=== PATIENT | female | born 2000 | race Two or more races ===

== ENCOUNTER 2022-10-21 07:32 | Emergency (ER) | payer SELFPAY ==
[~2022-10-21] VITALS: Ht 154.9 cm; Wt 90.3 kg
[2022-10-21 08:06] VITALS: BP 115/66
[2022-10-21] MEDS ORDERED: IBUP-1456 PO (08:59)
[2022-10-21] MEDS ORDERED: BACDST PO (08:59)
== END 2022-10-21 09:01 | disposition home or self-care (01) ==
LOC: ER 07:32
DX: K04.7 Periapical abscess without sinus (principal); N39.0 Urinary tract infection, site not specified
CPT/HCPCS: 81002; 81025

== ENCOUNTER 2023-12-30 16:47 | Inpatient (IN) | payer MEDICAID, OTHER ==
[~2023-12-30] VITALS: Ht 154.9 cm; Wt 92.3 kg
[~2023-12-30 16:47] MED LIST: BACDST PO; IBUP-1456 PO
[2023-12-30 17:17] LABS: Urine Bacteria None Seen /hpf (None Seen)
[2023-12-30 17:32] LABS: Basophils # (auto) 0 10 ^3/uL (0-0.2); Eosinophils # (auto) 0.2 10 ^3/uL (0-0.8); Eosinophils % (auto) 1.9 % (0.0-7.0); Hemoglobin 12.1 g/dL (12.2-16.2); Monocytes # (auto) 0.6 10 ^3/uL (0-1.3); Monocytes % (auto) 6.7 % (0.0-12.0)
[2023-12-30 17:33] LABS: Urine Blood Negative /uL (Negative); Urine Clarity Clear (Clear); Urine Color Dark-Yellow (Yellow); Urine Protein, UAD Negative (Negative); Urine Specific Gravity 1.016 (1.001-1.035); Urine Urobilinogen 2 mg/dL (Negative); Urine WBC 5 /hpf (0 - 5)
[2023-12-30 17:33] LABS: Basophils % (auto) 0.2 % (0.0-2.0); Hematocrit 35.8 % (36.0-46.0); Lymphocytes # (auto) 2.6 10 ^3/uL (0.4-5.4); Lymphocytes % (auto) 29.8 % (10.0-50.0); Mean Corpuscular Hemoglobin 26.7 pg (28.0-32.0); Mean Corpuscular Hgb Conc. 33.7 g/dL (32.0-36.0); Mean Corpuscular Volume 79.2 fL (80.0-100.0); Neutrophils # (auto) 5.4 10 ^3/uL (1.6-8.6); Neutrophils % (auto) 61.4 % (37.0-80.0); Red Blood Cells 4.53 10^6/uL (4.0-5.20); White Blood Cell 8.9 10^3/uL (4.4-10.8)
[2023-12-30 17:38] VITALS: PULSE 86; RESP 18; O2SAT 100
[2023-12-30] MEDS: ONDANSETRON ODT 4 MG TAB PO ONE (17:43)
[2023-12-30] MEDS: HYDROcodone-ACET 5/325MG TAB PO ONE (17:43)
[2023-12-30 17:45] LABS: Anion Gap 6 (5-15); Carbon Dioxide 25 mmol/L (20-30); Chloride 109 mmol/L (98-107); Potassium 3.7 mmol/L (3.5-5.1); Sodium 140 mmol/L (136-145)
[2023-12-30 17:46] LABS: Calcium 9.6 mg/dL (8.7-10.4)
[2023-12-30 17:50] LABS: Glucose 85 mg/dL (74-106)
[2023-12-30 17:51] LABS: Lipase 30 U/L (12-53)
[2023-12-30 17:52] LABS: BUN/Creatinine Ratio 9.3 (10.0-20.0); Blood Urea Nitrogen < 5 mg/dL (9-23)
[2023-12-30] MEDS: NITROFURANTOIN 100 mg CAP PO ONE (18:05)
[2023-12-30] MEDS: HYDROmorphone HCL 2 MG/ML VL/or syr IM ONE (18:23)
[2023-12-30] MEDS ORDERED: ACETAMINOPHEN 325 MG TAB PO PRN (22:30)
[2023-12-30] MEDS ORDERED: ONDANSETRON HCL 4 MG/2 ML VIAL IV PRN (22:30)
[2023-12-30 22:55] VITALS: PULSE 65; RESP 16; O2SAT 99
[2023-12-30] MEDS: cefTRIAXone 1GM/50ML D5W 50 ML IV ONE (23:05)
[2023-12-30] MEDS: SODIUM CHLORIDE 0.9% 1,000 ML IV SCH (23:06)
[2023-12-30] MEDS ORDERED: MORPHINE SULFATE INJ 2 MG/ml SYRG IV PRN (23:30)
[2023-12-30] MEDS ORDERED: NITROGLYCERIN 0.4 MG SL TAB SL PRN (23:30)
[2023-12-31] VITALS (8 sets, daily range): BP systolic 106–119; BP diastolic 70–78; PULSE 70–76; RESP 16–17; TEMP 97.8–98.2; O2SAT 93–100
[2023-12-31] MEDS: HYDROcodone-ACET 5/325MG TAB PO PRN (00:56)
[2023-12-31 04:47] LABS: Basophils # (auto) 0 10 ^3/uL (0-0.2); Hemoglobin 11.4 g/dL (12.2-16.2); Lymphocytes # (auto) 2.7 10 ^3/uL (0.4-5.4); Monocytes # (auto) 0.6 10 ^3/uL (0-1.3); Monocytes % (auto) 8.9 % (0.0-12.0); Neutrophils # (auto) 3.5 10 ^3/uL (1.6-8.6); White Blood Cell 7.1 10^3/uL (4.4-10.8)
[2023-12-31 04:49] LABS: Basophils % (auto) 0.7 % (0.0-2.0); Eosinophils # (auto) 0.2 10 ^3/uL (0-0.8); Eosinophils % (auto) 3.4 % (0.0-7.0); Hematocrit 33.6 % (36.0-46.0); Lymphocytes % (auto) 37.4 % (10.0-50.0); Mean Corpuscular Hemoglobin 26.7 pg (28.0-32.0); Mean Corpuscular Hgb Conc. 33.8 g/dL (32.0-36.0); Mean Corpuscular Volume 79.1 fL (80.0-100.0); Neutrophils % (auto) 49.6 % (37.0-80.0); Red Blood Cells 4.25 10^6/uL (4.0-5.20); Red Cell Distribution Width 13.8 % (11.8-14.3)
[2023-12-31 05:12] LABS: Alanine Aminotransferase 12 U/L (7-40); Albumin 3.9 g/dL (3.2-4.8); Alkaline Phosphatase 84 U/L (46-116); Anion Gap 7 (5-15); BUN/Creatinine Ratio 11.5 (10.0-20.0); Blood Urea Nitrogen 6 mg/dL (9-23); Carbon Dioxide 25 mmol/L (20-30); Chloride 107 mmol/L (98-107); Glucose 95 mg/dL (74-106); Potassium 3.5 mmol/L (3.5-5.1); Sodium 139 mmol/L (136-145)
[2023-12-31 05:13] LABS: Aspartate Aminotransferase 8 U/L (13-40); Bilirubin, Total 0.7 mg/dL (0.2-1.0); Total Protein 6.3 g/dL (5.7-8.2)
[2023-12-31] MEDS: cefTRIAXone 1GM/50ML D5W 50 ML IV SCH (09:05)
[2023-12-31] MEDS: HYDROmorphone HCL 2 MG/ML VL/or syr IV PRN (11:35)
[2023-12-31] MEDS: DOCUSATE SOD 100 MG CAP PO PRN (11:35)
[2024-01-01] VITALS (7 sets, daily range): BP systolic 92–117; BP diastolic 53–73; PULSE 59–84; RESP 16–22; TEMP 97.8–98.2; O2SAT 94–100
[2024-01-01 17:54] LABS: Urine Bacteria None Seen /hpf (None Seen)
[2024-01-01 18:15] LABS: Amphetamine Screen, Urine Neg (NEGATIVE); Barbiturate Scree,Urine Neg (NEGATIVE); Benzodiazephine Screen, Urine Neg (NEGATIVE); Cannabinoid Screen, Urine Pos (NEGATIVE); Cocaine Screen, Urine Neg (NEGATIVE); Opiate Scree,Urine Neg (NEGATIVE); Phencyclidine Screen, Urine Neg (NEGATIVE)
[2024-01-01 18:48] LABS: Urine Blood 3+ /uL (Negative); Urine Clarity Turbid (Clear); Urine Color Colorless (Yellow); Urine Protein, UAD TRACE (Negative); Urine Specific Gravity 1.006 (1.001-1.035); Urine Urobilinogen Normal (Negative); Urine WBC 44 /hpf (0 - 5)
[2024-01-02 01:00] VITALS: BP 107/54; PULSE 70; RESP 20; TEMP 97.7; O2SAT 96
[2024-01-02 05:00] VITALS: BP 95/47; PULSE 54; RESP 20; TEMP 97.9; O2SAT 97
[2024-01-02] MEDS: PANTOPRAZOLE 40 MG TAB PO ONE (06:51)
[2024-01-02 07:30] VITALS: PULSE 78; RESP 18; O2SAT 100
[2024-01-02 09:19] VITALS: BP 90/41; PULSE 78; RESP 16; TEMP 98.1; O2SAT 100
[2024-01-02] MEDS ORDERED: LEVO500T91 PO (12:29)
[2024-01-02] MEDS ORDERED: HYDR-4902 PO (12:29)
[2024-01-02] MEDS ORDERED: METR-344 PO (12:29)
[2024-01-02] MEDS ORDERED: PANT40T PO (12:29)
[2024-01-02 13:00] VITALS: BP 106/62; PULSE 66; RESP 17; TEMP 97.7; O2SAT 100
[2024-01-02 13:51] VITALS: BP 106/62; PULSE 66; RESP 17; TEMP 97.7; O2SAT 100
[2024-01-03] MEDS ORDERED: PANTOPRAZOLE 40 MG TAB PO SCH (06:00)
== END 2024-01-02 15:15 | disposition home or self-care (01) | DRG 463 ==
LOC: ER 16:52 → OVERFLOW 23:31 → WEST WING 12-31 09:51
PROVIDERS: ADMIT Nurse Practitioner Family; ATTEND Family Medicine
DX: N30.00 Acute cystitis without hematuria (principal); E86.0 Dehydration; K82.8 Other specified diseases of gallbladder; J45.909 Unspecified asthma, uncomplicated; Z79.899 Other long term (current) drug therapy
CPT/HCPCS: 36415; 74176; 76705; 80048; 80053; 80307; 81001; 81025; 83690; 85025; 87040; 87086; G0378; Q0162

== ENCOUNTER 2024-12-12 09:21 | Emergency (ER) | payer SELFPAY ==
[~2024-12-12] VITALS: Ht 154.9 cm; Wt 95.9 kg
[~2024-12-12 09:21] MED LIST changes: -BACDST PO; +HYDR-4902 PO; -IBUP-1456 PO; +LEVO500T91 PO; +METR-344 PO; +PANT40T PO
[2024-12-12 09:41] VITALS: TEMP 98.6
[2024-12-12 09:47] VITALS: BP 128/86
[2024-12-12 09:55] VITALS: PULSE 92; RESP 20; O2SAT 97
--- NOTE | 2024-12-12 10:06 | ED.PDOC ---
SOB-HPI HPI Comments 24 y/o F, with PMhx of asthma presents to the ED for CC of flu-like symptoms. Patient states, she has been experiencing flu-like symptoms including cough, nasal congestion, ear pain, and shortness of breath x2days. Patient reports, cough comes and goes. Patient denies chest pain, fever, chills, loss of taste or smell. No other symptoms or modifiers present at this time. Chief Complaint: Flu like Time Seen by MD: 09:58 Primary Care Provider: NONE Reviewed notes: Nurses Notes, Medications, Allergies Information Source: Patient Mode of Arrival: Ambulatory Severity: Moderate Timing: Days Duration: Since onset Context: At Rest History of: None Prehospital treatment: None Modifying Factors: Nothing Associated Signs and Symptoms: Cough, Nasal Congestion, Sore Throat Past Medical History PAST MEDICAL HISTORY: Asthma, UTI'S Surgical History: Denies all surgeries ENDOCRINOLOGIST History: Denies all ENDOCRINOLOGIST Hx Family History Family History: Reviewed,noncontributory to illness Social History Smoker: Non-Smoker Alcohol: Denies ETOH Use Drugs: Denies Drug Use Lives In: Home Constitutional: denies: chills, diaphoresis, fatigue, fever, malaise, sweats, weakness, others EENTM: reports: ear pain, nose congestion, throat pain; denies: blurred vision, double vision, ear bleeding, ear discharge, ear drainage, ear ringing, eye pain, eye redness, hearing loss, mouth pain, mouth swelling, nasal discharge, nose bleeding, nose pain, photophobia, tearing, throat swelling, voice changes, others Respiratory: reports: cough, shortness of breath; denies: hemoptysis, orthopnea, SOB at rest, SOB with excertion, stridor, wheezing, others Cardiovascular: denies: chest pain, dizzy spells, diaphoresis, Dyspnea on exertion, edema, irregular heart beat, left arm pain, lightheadedness, palpitations, PND, syncope, others Gastrointestinal: denies: abdomen distended, abdominal pain, blood streaked bowels, constipated, diarrhea, dysphagia, difficulty swallowing, hematemesis, melena, nausea, poor appetite, poor fluid intake, rectal bleeding, rectal pain, vomiting, others Genitourinary: denies: abnormal vagina bleeding, burning, dyspareunia, dysuria, flank pain, frequency, hematuria, incontinence, pain, , vagina discharge, urgency, others Neurological: denies: dizziness, fainting, headache, left sided numbness, left sided weakness, numbness, paresthesia, pre-existing deficit, right sided numbness, right sided weakness, seizure, speech problems, tingling, tremors, weakness, others Musculoskeletal: denies: back pain, gout, joint pain, joint swelling, muscle pain, muscle stiffness, neck pain, others Integumetry: denies: bruises, change in color, change in hair/nails, dryness, laceration, lesions, lumps, rash, wounds, others Allergic/Immunocompromised: denies: Difficulty Healing, Frequent Infections, Hives, Itching, others Hematologic/Lymphatic: denies: anemia, blood clots, easy bleeding, easy bruising, swollen glands, others Endocrine: denies: excessive hunger, excessive sweating, excessive thirst, excessive urination, flushing, intolerance to cold, intolerance to heat, unexplained weight gain, unexplained weight loss, others Psychiatric: denies: anxiety, bipolar disorder, depression, hopeless, panic disorder, schizophrenia, sleepless, suicidal, others All Other Systems: Reviewed and Negative Physical Exam General Appearance: No Apparent Distress, Normal HEENT: Normal ENT Inspection, Pharynx Normal, Other (no nasal flaring, no sternal retraction) Neck: Full Range of Motion, Non-Tender, Normal, Normal Inspection Respiratory: Chest Non-Tender, Lungs Clear, No Accessory Muscle Use, No Respiratory Distress, Normal Breath Sounds Cardiovascular: No Murmur, No Gallop, Regular Rate/Rhythm Breast Exam: Deferred Gastrointestinal: No Organomegaly, Non Tender, No Pulsatile Mass, Normal Bowel Sounds, Soft Genitalia: Deferred Pelvic: Deferred Rectal: Deferred Extremities: No calf tenderness, Normal capillary refill, Normal inspection, Normal range of motion, Non-tender, No pedal edema Musculoskeletal : Apperance: Normal Neurologic: Alert, shaker screen operator II-XII nml as Tested, No Motor Deficits, Normal Affect, Normal Mood, No Sensory Deficits Cerebellar Function: Normal Reflexes: Normal Skin: Dry, Normal Color, Warm Lymphatic: No Adenopathy Was a procedure done? Was a procedure done?: No Differential Dx Differential Diagnosis: Asthma, Pneumonia, Sinusitis, Pharyngitis, URI X-Ray, Labs, Meds, VS Vital Signs Date Time Temp Pulse Resp B/P (MAP) Pulse Ox O2 Delivery O2 Flow Rate FiO2 12/12/24 09:55 92 20 97 Room Air* 0 21 12/12/24 09:47 85 18 98 Room Air 12/12/24 09:47 92 18 128/86 (100) 98 12/12/24 09:45 18 97 Room Air* 0 21 12/12/24 09:41 98.6 91 18 122/72 (89) 97 98.6 Lab Test 12/12/24 10:00 Range/Units Urine Color Light-yellow Yellow Urine Clarity Clear Clear Urine pH 6.5 5.0-9.0 Urine Specific [place] 1.015 1.001-1.035 Urine Protein Negative Negative Urine Ketones Negative Negative Urine Blood Negative Negative /uL Urine Nitrite Negative Negative Urine Bilirubin Negative Negative Urine Urobilinogen Normal Negative mg/dL Urine Leukocyte Esterase Negative Negative /uL Urine RBC 1 0 - 4 /hpf Urine Microscopic WBC 1 0-5 /HPF Urine Squamous Epithelial Cells Few <5 /hpf Urine Bacteria None seen None Seen /hpf Urine Mucus Few None Seen Urine Glucose Normal Normal mg/dL Current Medications Medications (Trade) Dose Ordered Sig/Tonia Route Start Time Stop Time Status Last Admin Dexamethasone Sodium Phosphate (Decadron Injection) 16 mg ONCE ONCE IM 12/12/24 10:00 12/12/24 10:07 DC 12/12/24 10:15 [place] [id number] Ph: [phone] DIAGNOSTIC IMAGING Diagnostic Imaging Report : [id number] Signed PATIENT: UMA LYN ACCT: [id number] UNIT: [id number] : 2000 LOC: ER ROOM / BED: / AGE / SEX: 24 / F ADM STATUS: REG ER SERVICE 1000 ORDERING PHYSICIAN: CHARLIE MAHMOOD NP PROCEDURE(s): CXR2 - CHEST TWO VIEWS ROUTINE REASON: Cough. R/o PNA ORDER NUMBER(s): [id number], ACCESSION NUMBER(s): [id number] CHEST RADIOGRAPH Indication: Cough. R/o PNA Technique: Frontal and lateral view of the chest was obtained Comparison: None FINDINGS: Lines and Tubes: None Lungs: Mild congestion Pleura: No effusion. No pneumothorax. Cardiomediastinal contours: Unremarkable Bones: Unremarkable IMPRESSION: Low lung volumes. Possible viral pneumonia. ATED BY: DEN GRANT MD DICTATED DATE/TIME: 12/12/24 103 SIGNED BY: DEN GRANT MD SIGNED DATE/TIME: 12/12/24 1034 CC: X-Ray, Labs, Meds, VS Comment 24 y/o F, with PMhx of asthma presents to the ED for CC of flu-like symptoms. Patient arrives alert and oriented, ABC's intact, afebrile, vital signs stable, saturating well in room air Urinalysis was ordered to rule out UTI or hematuria. Diagnostic imaging ordered by me and results interpreted by radiology :CXR Low lung volumes. Possible viral pneumonia. The patient's presentation and chest x-ray findings are consistent with viral pneumonia. The patient is overall well-appearing and does not appear to be clinically toxic. Therefore, the patient is a good candidate for outpatient treatment. The patient was reassessed throughout the ED visit and remained stable. The patient did not require any supplemental oxygen while in the ED. The patient was able to ambulate as well as tolerate p.o. intake in the ED. discussed the management plan with the patient who was in agreement, strict return precautions to the ED were given Patient is stable for discharge at this time. External notes reviewed. Test results and diagnostic imaging interpreted. All diagnostic findings, discharge care, education and instructions provided Follow-up with PCP in 2 to 3 days Patient verbalized understanding and agreed to treatment plan Vital signs stable, afebrile, no acute distress noted Patient ambulatory with strong steady gait Advised to return precautions for any new or worsening symptoms, return to ER immediately for re-evaluation Patient is aware that the purpose of this visit was for an acute medical emergency requiring emergent stabilization. Chronic conditions, including malignancies have not been ruled out. Patient is instructed to follow up with PCP as directed and discharge instructions for continued care and workup. If unable to arrange follow-up, patient is to return to the emergency department for reassessment. Patient (parent or legal guardian if applicable) was given verbal and written discharge instructions and acknowledges understanding. Additional MDM Review of External, Non-ED records: External records reviewed. Discussion with independent historian (EMS, family) history obtained from the patient/parents (if applicable) at bedside Chronic conditions affecting care: None Social determinants of health affecting care: None Consideration of admission (observation or admission): I considered escalation of care to admission for this patient, however given the reassuring workup, the patient is safe for outpatient management. Discussion with the Radiology: No Tests considered but not performed: Prescription medication considered but not given: Time of 1ST Reevaluation: 10:22 Reevaluation 1ST: Unchanged Time of 2ND Reevaluation: 11:48 Reevaluation 2ND: Improved Patient Education/Counseling: Diagnosis, Treatment Family Education/Counseling: No Family Present SEPSIS Sepsis Screen Date sepsis recognized/suspect: Dec 12, 2024 Time Sepsis recognized/suspect: 954 Recent Procedure: No On Antibiotic Therapy: No Respiratory Rate >20: No Heart Rate >90: Yes Temp<36 C (96.8 F) or >38.3 C: No SBP <90 or MAP <65 mmHG: No New Acute Mental Status Change: No Is the patient on CPAP, BIPAP,: No Physician Orders Chest Two Views Routine (12/12/24 10:00) Vital Signs Date Time Temp Pulse Resp B/P (MAP) Pulse Ox O2 Delivery O2 Flow Rate FiO2 12/12/24 09:55 92 20 97 Room Air* 0 21 12/12/24 09:47 85 18 98 Room Air 12/12/24 09:47 92 18 128/86 (100) 98 12/12/24 09:45 18 97 Room Air* 0 21 12/12/24 09:41 98.6 91 18 122/72 (89) 97 98.6 Medications Medications Dose Ordered Sig/Tonia Route Start Time Stop Time Status Last Admin Dose Admin Dexamethasone Sodium Phosphate 16 mg ONCE ONCE IM 12/12/24 10:00 12/12/24 10:07 DC 12/12/24 10:15 Departure 1 Departure Time of Disposition: 11:52 Impression: Primary Impression: Viral pneumonia Disposition: 01 HOME / SELF CARE / HOMELESS Condition: Stable e-Prescriptions Albuterol Sulfate (Albuterol Sulfate Hfa) 108 Mcg/Act Aer 1 PUFF IN Q6HP PRN for 30 Days, #1 AER 0 Refills Prov: CHARLIE MAHMOOD PRISON OFFICER 12/12/24 Promethazine-Dm (Promethazine Dm 6.25-15 mg/5Ml) 1 Zuleyka Zuleyka 5 ML PO TIDP PRN for 10 Days, #150 ML 0 Refills Prov: CHARLIE MAHMOOD PRISON OFFICER 12/12/24 Benzonatate (Benzonatate) 100 Mg Cap 1 CAP PO TID for 10 Days, #30 CAP 0 Refills Prov: CHARLIE MAHMOOD PRISON OFFICER 12/12/24 Azithromycin (Azithromycin) 250 Mg Tab 250 MG PO DAILY MDD 500 for 5 Days, #6 TAB 0 Refills 2 TABLETS ORALLY ON DAY ONE, THEN 1 TABLET ORALLY DAILY FOR 4 DAYS Prov: CHARLIE MAHMOOD LUZ 12/12/24 Critical Care Note Critical Care Time?: No Stability Stability form required: No Heart Score Heart Score: Heart Score Response (Comments) Value History N/A 0 EKG N/A 0 Age N/A 0 Risk Factors N/A 0 Troponin N/A 0 Total 0 I personally scribed for CHARLIE MAHMOOD PRISON OFFICER ([email or web address]) on 12/12/24 at 10:06. Electro nically submitted by Karli Oliveira ([email or web address]). I personally scribed for MEAGAN MAHMOODO Aria PRISON OFFICER ([email or web address]) on 12/12/24 at 10:09. Electronically submitted by Karli Oliveira ([email or web address]). I personally scribed for MEAGAN MAHMOODWhitley Knapp PRISON OFFICER ([email or web address]) on 12/12/24 at 11:43. Electronically submitted by Karli Oliveira ([email or web address]). CHARLIE MAHMOOD LUZ Dec 12, 2024 10:06
--- NOTE | 2024-12-12 10:36 | DVH ---
CHEST RADIOGRAPH Indication: Cough. R/o PNA Technique: Frontal and lateral view of the chest was obtained Comparison: None FINDINGS: Lines and Tubes: None Lungs: Mild congestion Pleura: No effusion. No pneumothorax. Cardiomediastinal contours: Unremarkable Bones: Unremarkable IMPRESSION: Low lung volumes. Possible viral pneumonia.
[2024-12-12 11:07] LABS: Urine Protein, UAD Negative (Negative)
[2024-12-12] MEDS ORDERED: BENZ100C97 PO (11:52)
[2024-12-12] MEDS ORDERED: ALBU108A5 IN (11:52)
[2024-12-12] MEDS ORDERED: AZIT-43 PO (11:52)
[2024-12-12] MEDS ORDERED: PROM1SOL4 PO (11:52)
== END 2024-12-12 12:03 | disposition home or self-care (01) ==
LOC: ER 09:21
DX: J12.9 Viral pneumonia, unspecified (principal); B97.89 Other viral agents as the cause of diseases classified elsewhere; J45.909 Unspecified asthma, uncomplicated; Z79.899 Other long term (current) drug therapy
CPT/HCPCS: 71046; 81001; 96372; 99284; J1100

== ENCOUNTER 2025-02-12 11:40 | Emergency (ER) | payer MEDICAID, OTHER ==
[~2025-02-12] VITALS: Ht 154.9 cm; Wt 97.9 kg
[~2025-02-12 11:40] MED LIST changes: +ALBU108A5 IN; +AZIT-43 PO; +BENZ100C97 PO; +PROM1SOL4 PO
--- NOTE | 2025-02-12 12:46 | ED.PDOC ---
General HPI Comments 24-year-old female presents to the ER with a chief complaint of urinary symptoms/pain. Patient reports on having painful urination, frequency, left flank pain which all started yesterday. Patient notes on her last UTI being months ago. Denies any other symptoms at this time. Chief Complaint: Urinary Time Seen by MD: 13:00 Primary Care Provider: NONE Reviewed notes: Nurses Notes, Medications, Allergies Allergies: Coded Allergies: NO KNOWN ALLERGIES (Unverified , 10/21/22) Home Meds Active Scripts Albuterol Sulfate (Albuterol Sulfate Hfa) 108 Mcg/Act Aer, 1 PUFF IN Q6HP PRN for 30 Days, #1 AER 0 Refills Prov:CHARLIE MAHMOOD NP 12/12/24 Promethazine-Dm (Promethazine Dm 6.25-15 mg/5Ml) 1 Zuleyka Zuleyka, 5 ML PO TIDP PRN for 10 Days, #150 ML 0 Refills Prov:CHARLIE MAHMOOD NP 12/12/24 Benzonatate (Benzonatate) 100 Mg Cap, 1 CAP PO TID for 10 Days, #30 CAP 0 Refills Prov:CHARLIE MAHMOOD NP 12/12/24 Azithromycin (Azithromycin) 250 Mg Tab, 250 MG PO DAILY MDD 500 for 5 Days, #6 TAB 0 Refills 2 TABLETS ORALLY ON DAY ONE, THEN 1 TABLET ORALLY DAILY FOR 4 DAYS Prov:CHARLIE MAHMOOD NP 12/12/24 Metronidazole (Flagyl) 500 Mg Tab, 1 TAB PO TID, #30 TAB Prov:ANGELICA DASH MD 01/02/24 Pantoprazole Sodium Sesquihydr (Pantoprazole Sodium) 40 Mg Tab, 40 MG PO BID, #30 TAB Prov:ANGELICA DASH MD 01/02/24 Hydrocodone-Acetaminophen (Hydrocodone Bitartrate/AC 5-325 mg) 1 Tab Tab, 1 TAB PO QID PRN, #20 TAB Prov:ANGELICA DASH MD 01/02/24 Metronidazole (Flagyl) 500 Mg Tab, 1 TAB PO TID, #30 TAB Prov:ANGELICA DASH MD 01/02/24 Levofloxacin Hemihydrate (LEVAQUIN 500 MG) 500 Mg Tab, 1 TAB PO DAILY, #7 TAB Prov:ANGELICA DASH MD 01/02/24 Information Source: Patient Mode of Arrival: Ambulatory Severity: Moderate ( ) Timing: Hours Duration: Since onset, Hours Prehospital treatment: None Onset: Spontaneous Symptoms: None History of: None Location: (L)Flank associated signs and symptoms: Flank Pain, Frequency Past Medical History PAST MEDICAL HISTORY: Asthma, UTI'S Surgical History: Denies all surgeries DUSTING AND BRUSHING MACHINE OPERATOR History: Denies all DUSTING AND BRUSHING MACHINE OPERATOR Hx Family History Family History: Reviewed,noncontributory to illness, Unknown Social History Smoker: Non-Smoker Alcohol: Denies ETOH Use Drugs: Denies Drug Use Lives In: Home Constitutional: denies: chills, diaphoresis, fatigue, fever, malaise, sweats, weakness, others EENTM: denies: blurred vision, double vision, ear bleeding, ear discharge, ear drainage, ear pain, ear ringing, eye pain, eye redness, hearing loss, mouth pain, mouth swelling, nasal discharge, nose bleeding, nose congestion, nose pain, photophobia, tearing, throat pain, throat swelling, voice changes, others Respiratory: denies: cough, hemoptysis, orthopnea, SOB at rest, shortness of breath, SOB with excertion, stridor, wheezing, others Cardiovascular: denies: chest pain, dizzy spells, diaphoresis, Dyspnea on exertion, edema, irregular heart beat, left arm pain, lightheadedness, palpitations, PND, syncope, others Gastrointestinal: denies: abdomen distended, abdominal pain, blood streaked bowels, constipated, diarrhea, dysphagia, difficulty swallowing, hematemesis, melena, nausea, poor appetite, poor fluid intake, rectal bleeding, rectal pain, vomiting, others Genitourinary: reports: pain (During urination); denies: abnormal vagina bleeding, burning, dyspareunia, dysuria, flank pain, frequency, hematuria, incontinence, , vagina discharge, urgency, others Neurological: denies: dizziness, fainting, headache, left sided numbness, left sided weakness, numbness, paresthesia, pre-existing deficit, right sided numbness, right sided weakness, seizure, speech problems, tingling, tremors, weakness, others Musculoskeletal: reports: back pain (Lower back); denies: gout, joint pain, joint swelling, muscle pain, muscle stiffness, neck pain, others Integumetry: denies: bruises, change in color, change in hair/nails, dryness, laceration, lesions, lumps, rash, wounds, others Allergic/Immunocompromised: denies: Difficulty Healing, Frequent Infections, Hives, Itching, others Hematologic/Lymphatic: denies: anemia, blood clots, easy bleeding, easy bruising, swollen glands, others Endocrine: denies: excessive hunger, excessive sweating, excessive thirst, excessive urination, flushing, intolerance to cold, intolerance to heat, unexplained weight gain, unexplained weight loss, others Psychiatric: denies: anxiety, bipolar disorder, depression, hopeless, panic disorder, schizophrenia, sleepless, suicidal, others All Other Systems: Reviewed and Negative Physical Exam General Appearance: No Apparent Distress, Normal HEENT: Normal ENT Inspection, Pharynx Normal, TMs Normal Neck: Full Range of Motion, Non-Tender, Normal, Normal Inspection Respiratory: Chest Non-Tender, Lungs Clear, No Accessory Muscle Use, No Respiratory Distress, Normal Breath Sounds Cardiovascular: No Edema, No JVD, No Murmur, No Gallop, Normal Peripheral Pulses, Regular Rate/Rhythm Breast Exam: Deferred Gastrointestinal: No Organomegaly, Non Tender, No Pulsatile Mass, Normal Bowel Sounds, Soft Genitalia: Deferred Pelvic: Deferred Rectal: Deferred Extremities: No calf tenderness, Normal capillary refill, Normal inspection, Normal range of motion, Non-tender, No pedal edema Musculoskeletal : Apperance: Normal Neurologic: Alert, urologist md II-XII nml as Tested, No Motor Deficits, Normal Affect, Normal Mood, No Sensory Deficits Cerebellar Function: Normal Reflexes: Normal Skin: Dry, Normal Color, Warm Lymphatic: No Adenopathy Was a procedure done? Was a procedure done?: No X-Ray, Labs, Meds, VS Vital Signs Date Time Temp Pulse Resp B/P (MAP) Pulse Ox O2 Delivery O2 Flow Rate FiO2 02/12/25 11:52 97.8 97 18 102/66 97 97.8 Lab Test 02/12/25 14:22 Range/Units Urine Color Dark-brown Yellow Urine Clarity Turbid H Clear Urine pH 5.5 5.0-9.0 Urine Specific [place] 1.020 1.001-1.035 Urine Protein Negative Negative Urine Ketones Negative Negative Urine Blood Negative Negative /uL Urine Nitrite 1+ H Negative Urine Bilirubin Negative Negative Urine Urobilinogen 3 H Negative mg/dL Urine Leukocyte Esterase 1+ Negative /uL Urine RBC 3 0 - 4 /hpf Urine Microscopic WBC 52 H 0-5 /HPF Urine Squamous Epithelial Cells Few <5 /hpf Urine Bacteria Mod H None Seen /hpf Urine Mucus Few None Seen Urine Glucose Normal Normal mg/dL X-Ray, Labs, Meds, VS Comment 24-year-old female presents to the ER with a chief complaint of urinary symptoms/pain. Patient arrives alert and oriented, ABC's intact, afebrile, vital signs stable, saturating well in room air Peripheral IV insertion+ labs were ordered. CBC was ordered to exclude anemia, blood loss, or infection. BMP was ordered to exclude electrolyte abnormalities, renal failure, dehydration, hyperglycemia CMP was ordered to exclude electrolyte abnormalities, renal failure, dehydration, hyperglycemia and/or liver enzyme abnormalities. PT and INR were ordered to rule out coagulopathy. Troponin and BNP were ordered to rule out myocardial infarction, or congestive heart failure. Urinalysis was ordered to rule out UTI or hematuria. Diagnostic imaging ordered by me and results interpreted by radiology : Labs in the ED showed (pertinent+ and then pertinent-) Patient was given:_. Tolerated medications with no adverse reaction. Additional MDM Review of External, Non-ED records: External records reviewed. Discussion with independent historian (EMS, family) history obtained from the patient/parents (if applicable) at bedside Chronic conditions affecting care: None Social determinants of health affecting care: None Consideration of admission (observation or admission): I considered escalation of care to admission for this patient, however given the reassuring workup, the patient is safe for outpatient management. Discussion with the Radiology: No Tests considered but not performed: Prescription medication considered but not given: 12 lead EKG interpretation: Time of 1ST Reevaluation: 13:30 Reevaluation 1ST: Unchanged Patient Education/Counseling: Diagnosis, Treatment, Prognosis Family Education/Counseling: No Family Present SEPSIS Sepsis Screen Date sepsis recognized/suspect: Feb 12, 2025 Time Sepsis recognized/suspect: 1153 Recent Procedure: No (TNN) On Antibiotic Therapy: No Respiratory Rate >20: No Heart Rate >90: No Temp<36 C (96.8 F) or >38.3 C: No SBP <90 or MAP <65 mmHG: No New Acute Mental Status Change: No Is the patient on CPAP, BIPAP,: No Vital Signs Date Time Temp Pulse Resp B/P (MAP) Pulse Ox O2 Delivery O2 Flow Rate FiO2 02/12/25 11:52 97.8 97 18 102/66 97 97.8 Departure 1 Departure Time of Disposition: 15:08 Impression: Primary Impression: UTI (urinary tract infection) Qualified Codes: N30.00 - Acute cystitis without hematuria Disposition: HOME / SELF CARE / HOMELESS Condition: Stable e-Prescriptions Sulfamethoxazole W/Trimethopri (Bactrim Ds Tablet) 1 Tab Tb 1 TAB PO BID for 5 Days, #10 TAB 0 Refills Prov: CHARLIE MAHMOOD NP 02/12/25 Critical Care Note Critical Care Time?: No Stability Stability form required: No I personally scribed for CHARLIE MAHMOOD SOAKING ROOM OPERATOR ([email or web address]) on 02/12/25 at 12:46. Electronically submitted by Siva Rivera ([employer]). I personally scribed for CHARLIE MAHMOOD NP ([email or web address]) on 02/12/25 at 12:58. E lectronically submitted by Siva Rivera ([email or web address]). CHARLIE MAHMOOD SOAKING ROOM OPERATOR Feb 12, 2025 12:46
[2025-02-12 14:50] LABS: Urine Protein, UAD Negative (Negative)
[2025-02-12] MEDS ORDERED: BACDST PO (15:08)
[2025-02-12 15:21] VITALS: BP 112/64; PULSE 91; RESP 17; TEMP 98; O2SAT 98
== END 2025-02-12 15:26 | disposition home or self-care (01) ==
LOC: ER 11:40
DX: N39.0 Urinary tract infection, site not specified (principal); J45.909 Unspecified asthma, uncomplicated; Z79.899 Other long term (current) drug therapy
CPT/HCPCS: 81001